=== PATIENT | female | born 1960 | race Two or more races ===

== ENCOUNTER 2024-04-21 08:43 | Emergency (ER) | payer OTHER, SELFPAY ==
[2024-04-21] VITALS (11 sets, daily range): BP systolic 114–155; BP diastolic 56–93; PULSE 103–117; RESP 14–19; TEMP 36.6–37.2; O2SAT 95–100; BMI 24.0
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
--- NOTE | 2024-04-21 09:25 | EKG_ITS ---
[facility] Test Date: 2024-04-21 Pat Name: ALESHA HYDE Department: Room: - Gender: Female Audiovisual Lead Technician: : 1960 Requested By: Luis Daniel Perez Order Number: [id number] Reading MD: Luis Daniel Perez Measurements Intervals [place] Rate: 108 P: 47 SC: 151 QRS: -7 QRSD: 91 T: 11 QT: 303 QTc: 406 Interpretive Statements SINUS TACHYCARDIA POSSIBLE LEFT ATRIAL ENLARGEMENT [-0.1mV P WAVE IN V1/V2] LOW QRS VOLTAGE IN PRECORDIAL LEADS [QRS DEFLECTION < 1.0 mV IN CHEST LEADS] POSSIBLE ANTERIOR MYOCARDIAL INFARCTION , PROBABLY OLD [30 ms Q WAVE IN V3/V4, OR R < 0.2 mV IN V4] ABNORMAL RHYTHM ECG No previous ECG available for comparison /store/S0/[id number]/[id number].pdf
--- NOTE | 2024-04-21 09:25 | XR_ITS ---
Examination: AP chest single view TECHNIQUE: AP portable sitting chest single view Exam date and time: April 21, 2024 0932 hours INDICATIONS: Patient fell yesterday with injury to the chest, chest pain FINDINGS: No pneumothorax Minor prominence left ventricle Clavicles ribs appear intact IMPRESSION: No pneumothorax pulmonary contusion or hemothorax
--- NOTE | 2024-04-21 09:28 | XR_ITS ---
Examination: CT maxillofacial, without intravenous contrast. 2-D sagittal reconstructions. 3-D reconstructions. Date and time of exam:April 21, 2024 1010 hours INDICATIONS: Patient fell today with injury to the face, facial pain COMPARISON: January 18, 2021 CTDI: vol (mGy):16.6 DLP: (mGycm):297 Technique: Multiple axial images of maxillofacial region, 3.0 mm slice thickness. 2-D sagittal and coronal reconstructions. 3-D reconstructions. Low dose protocols were performed. One or more of the following dose reduction techniques were used; automated exposure control, adjustment of the mA and/or KV according to patient size, use of iterative reconstruction technique. Findings: Frontal bone frontal sinuses intact Orbital rims intact No nasal bone fracture No depression zygomatic arches Pterygoid plates maxilla and the mandible intact IMPRESSION: No acute facial fracture.
--- NOTE | 2024-04-21 09:28 | XR_ITS ---
Examination: CT brain head without contrast. 2-D sagittal coronal reconstructions Date and time of exam:April 21, 2024 1010 hours INDICATIONS: Patient fell today with injury to the head, head pain COMPARISON: July 13, 2022 CTDI: vol (mGy):49 DLP: (mGycm):981 Technique: Multiple CT axial sections of the brain have been obtained, 5 mm slice thickness. Contrast has not been administered. 2-D sagittal, coronal reconstructions have been obtained Low dose protocols were performed. One or more of the following dose reduction techniques were used; automated exposure control, adjustment of the mA and/or KV according to patient size, use of iterative reconstruction technique. Findings: No significant ventricular enlargement. Intra-axial or extra-axial hemorrhage density is not seen. No mass effect or midline shift Basal cisterns are not remarkable. Fourth ventricle is midline. Cranial vault intact. Impression: Negative for acute hemorrhage, mass effect or midline shift
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
--- NOTE | 2024-04-21 09:28 | XR_ITS ---
Examination: CT cervical spine without contrast 2-D sagittal reconstructions 2-D coronal reconstructions 3-D reconstructions. Exam date and time:April 21, 2024 1010 hours INDICATIONS: Patient fell today with injury to the neck, neck pain COMPARISON: January 18, 2021 CTDI:vol (mGy) 13.2 DLP: (mGycm) 291 Technique: Multiple 2 mm axial sections of the cervical spine have been obtained. The coronal and sagittal reconstructions have been obtained. 3-D reconstructions have been obtained. Low dose protocols were performed. One or more of the following dose reduction techniques were used; automated exposure control, adjustment of the mA and/or KV according to patient size, use of iterative reconstruction technique. Findings: Axial sections demonstrate intact base of the skull. C1 exhibit satisfactory relationship to the odontoid. No acute cervical vertebral body fracture seen. Alignment posterior spinous processes satisfactory. Impression: No acute cervical fracture.
[2024-04-21] MEDS: SODIUM CHLORIDE 0.9% 1000 ML 1,000 ML 999 ML IV (09:59)
[2024-04-21 10:09] LABS: Lactate (Lactic Acid) 1.1 mMol/L (0.4-2.0)
[2024-04-21 10:11] LABS: Basophils % (Auto) 0 % (0-2.5); Eosinophils % (Auto) 0 % (0-10); Hematocrit 30.6 % (36.0-46.0); Hemoglobin 10.5 g/dL (12.0-16.0); Immature Granulocytes % (Auto) 0 % (0-0); Immature Granulocytes Auto 0.04 Thou/mm3 (0.00-0.00); Lymphocytes # (Auto) 0.9 Thou/mm3 (1.0-4.8); Lymphocytes % (Auto) 10 % (10-50); Mean Corpuscular HGB Conc 34.3 g/dl (31.0-37.0); Mean Corpuscular Hemoglobin 30.7 pg (25.0-35.0); Mean Corpuscular Volume 90 fL (80-100); Monocytes # (Auto) 0.7 Thou/mm3 (0.0-0.8); Monocytes % (Auto) 8 % (0-12); Neutrophils # (Auto) 7.6 Thou/mm3 (1.8-7.7); Neutrophils % (Auto) 81 % (37-80); Nucleated Red Blood Cell % 0 /100 WBC (0); Platelet Count 235 Thou/mm3 (140-440); RDW Standard Deviation 51.8 fL (36.4-46.3); Red Blood Count 3.42 Miln/mm3 (4.00-5.20); White Blood Count 9.3 Thou/mm3 (3.6-11.0)
[2024-04-21 10:28] LABS: INR 1.1 (0.9-1.3); Partial Thromboplastin Time 30.5 Seconds (22.0-36.0); Prothrombin Time 12.1 Seconds (9.0-12.2)
[2024-04-21 10:47] LABS: Acetaminophen < 2.0 mcg/mL (10.0-20.0); Alanine Aminotransferase 79 U/L (10-49); Albumin, Serum 4.1 gm/dL (3.4-4.8); Albumin/Globulin Ratio 1.4 (1.2-2.2); Alcohol, Blood Medical < 3.0 mg/dL (0-10.0); Alkaline Phosphatase 81 U/L (46-116); Anion Gap 15 (7-16); Aspartate Amino Transferase 201 U/L (0-34); BUN/Creatinine Ratio 22 Ratio (12-20); Bilirubin,Total 1.7 mg/dL (0.3-1.2); Blood Urea Nitrogen 13 mg/dL (9-23); Calcium 9.8 mg/dL (8.3-10.6); Calcium (Corrected) 9.8 mg/dL (8.5-10.1); Carbon Dioxide 17.8 mMol/L (20.0-31.0); Chloride 102 mMol/L (98-107); Creatinine (Component) 0.6 mg/dL (0.6-1.3); Estimated Creatinine Clearance 83.9 mL/min (>60); Globulin 2.9 gm/dL (2.3-3.5); Glucose 72 mg/dL (74-106); Lipase 28 U/L (12-53); Osmolality,Calculated 269 (275-295); Potassium 3.3 mMol/L (3.4-5.1); Salicylate < 3.0 mg/dL; Sodium 135 mMol/L (136-145); eGFR > 60 See Note
--- NOTE | 2024-04-21 11:00 | PC.NURSE ---
pt walked to and from bathroom without difficulty
[2024-04-21 11:33] LABS: HCG Qualitative,Urine Negative
--- NOTE | 2024-04-21 12:00 | PC.NURSE ---
resting without complaints. Incontinent of urine and pt cleaned and linen changed
[2024-04-21 12:04] LABS: Amphetamine/Methamp Scrn,U Positive (Negative); Barbiturate Screen,Urine Negative (Negative); Benzodiazepines Screen,Urine Negative (Negative); Benzoylecgonine Screen, Ur Negative (Negative); Fentanyl Screen,Urine Negative (Negative); Opiate Screen,Urine Negative (Negative); THC Screen,Urine Positive (Negative)
--- NOTE | 2024-04-21 15:05 | PC.NURSE ---
[facility] SUPPLY CHAIN BUSINESS ANALYST TALKWITH WITH DE. ALMAZAN THAT PT NOT MEETING CRITERIA FOR 5 150 AND HOT PACKER RESCINDING THE 5150. TALKED WITH DR. ALMAZAN ABOUT KEEPING PT ON 1798 HOLD. AWAITING MD TO ORDER.
--- NOTE | 2024-04-21 16:30 | PC.NURSE ---
DR. ALMAZAN WANTS PT WATCHED FOR POSSIBLE DT'S DUE TO HX ETOH USE DAILY
--- NOTE | 2024-04-21 18:14 | PC.NURSE ---
PT RESTING WITHOUT COMPLAINTS
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
--- NOTE | 2024-04-21 19:13 | PC.CC ---
1734-Call to APS MARIO Brownlee, SOC 341-verbal and written completed at this time, for concerns of self neglect. Moira request follow up call for D/c disposition.
--- NOTE | 2024-04-21 19:35 | PC.NURSE ---
Introduced self to pt. pt lying in gurney at this time. pt given a sandwich and juice box. pt lying in gurney, rambling and stating someone is sitting in the room with her. pt states its her sister and continues to point at the curtains. pts faced noted to have bruising, right eye trauma and bruising to left eye and chin. When asked about how they occurred pt stated she suffers from vertigo and has had multiple falls lately. Pt asked if she is having visual or audio hallucinations but kylah any, although she is noted to be rambling excessively having a flight of ideas. pt kylah any HI/SI.
[2024-04-21] MEDS: DIAZEPAM 5 MG TABLET 10 MG PO (20:05)
--- NOTE | 2024-04-21 22:15 | PD.EDADDENDU ---
Emergency Room Addendum Addendum Narrative: 1800: Care assumed from Dr. Perez. Past medical, surgical, social and family history reviewed. Vitals and home medications reviewed. Results and treatment plan discussed. I will assume the care of the patient at this time and will follow the patient, pending psychiatric placement. Please refer to the emergency department record for history and examination. Patient was placed in observation for treatment and monitoring of psychiatric symptoms, at 1800 04/21/2024. Symptoms consist of suicidal ideation and depression. Treatment plan includes psychiatric consult, reassessments, and possible placement into psychiatric facility. The patient had access and provided personal hygiene, shower, food, water, and daily medications. 0600: Care signed out to Dr. Brantley (emergency physician). Past medical, surgical, social and family history reviewed. Vitals and home medications reviewed. Results and treatment plan discussed. They will assume the care of the patient at this time and will follow the patient, pending psychiatric placement. At this time, observation has ended.
--- NOTE | 2024-04-21 22:25 | PC.NURSE ---
ASSISTED PT TO BEDSIDE [facility]. PT VERY UNSTEADY ON HER FEET, RN STOOD BY TO ASSIST. PT ASSISTED BACK TO [facility] AFTER USING [facility].
[2024-04-22 03:48] VITALS: BP 130/68; PULSE 105; RESP 16; O2SAT 100
[2024-04-22 03:53] VITALS: TEMP 36.6
[2024-04-22 06:47] VITALS: BP 100/63; PULSE 104; RESP 16; O2SAT 99
--- NOTE | 2024-04-22 07:26 | PC.NURSE ---
[facility] at bedside
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
[2024-04-22 07:53] VITALS: PULSE 105
[2024-04-22 08:05] VITALS: BP 120/70; PULSE 104; RESP 14; TEMP 36.7; O2SAT 98
--- NOTE | 2024-04-22 08:13 | PC.CC ---
Jagruti Harden made contact with PAC staff Tia and obtained appointment for mental health intake assessment for patient for Saturday, April 24, 2024, 9am. ASW provided this information to patient.
--- NOTE | 2024-04-22 08:14 | EDNOTE_ITS ---
Emergency Room Addendum <Carole Gray - Last Filed: 04/22/24 08:16> Addendum Narrative: 0600: Care assumed from Dr. Valdovinos, the previous shift emergency physician. Past medical, surgical, social and family history reviewed. Vitals and home medications reviewed. I will assume the care of the patient at this time, pending reassessment and final disposition. Please refer to the emergency department record for history and examination from initial visit.? 0815: HAND DRAWER IN HELPER has met with the patient and provided resources in addition to follow up appointments with mental health. Will DC Home. <Tc Brantley MD - Last Filed: 04/22/24 08:33> Addendum Narrative: 0600: Care assumed from Dr. Valdovinos, the previous shift emergency physician. Past medical, surgical, social and family history reviewed. Vitals and home medications reviewed. I will assume the care of the patient at this time, pending reassessment and final disposition. The patient was signed out to me from my predecessor Dr. Carrero. He told me that the patient had been medically cleared by him and his predecessor to be seen by mental health. On my examination, the patient is alert awake oriented x 4 GCS of 15. No suicidal no homicidal no delusion and no hallucination. Patient moving all 4 extremity. And she agreed to go home. She said she is going to call family for a ride home. Please refer to the emergency department record for history and examination from initial visit.? 0815: HAND DRAWER IN HELPER has met with the patient and provided resources in addition to follow up appointments with mental health. Will DC Home. Diagnosis: Mental health evaluation, fall with multiple soft tissue contusion, positive methamphetamine Condition: Stable and improved DC instruction: Follow-up with your medical doctor for recheck and further care in 72 hours. Return to nearest emergency department if condition worsens or if new symptoms develop.
== END 2024-04-22 09:17 | disposition home or self-care (01) ==
PROVIDERS: Emergency Medicine; Emergency Provider Emergency Medicine; PCP Family Medicine
DX: Z04.6 Encounter for general psychiatric examination, requested by authority (principal); S00.93XA Contusion of unspecified part of head, initial encounter; S00.83XA Contusion of other part of head, initial encounter; F29 Unspecified psychosis not due to a substance or known physiological condition; F10.10 Alcohol abuse, uncomplicated; F15.10 Other stimulant abuse, uncomplicated; E04.1 Nontoxic single thyroid nodule; S70.11XA Contusion of right thigh, initial encounter; S10.93XA Contusion of unspecified part of neck, initial encounter; S30.1XXA Contusion of abdominal wall, initial encounter; S20.219A Contusion of unspecified front wall of thorax, initial encounter; W17.81XA Fall down embankment (hill), initial encounter; I10 Essential (primary) hypertension
CPT/HCPCS: 36415; 70450; 70486; 71045; 71260; 72125; 74177; 80053; 80307; 80320; 80329; 81001; 81025; 83605; 83690; 85025; 85610; 85730; 93005; 96127; 96360; 96361; 99285; A4649; J7030; Q9967; A9270; G0480

== ENCOUNTER 2024-05-12 17:25 | Emergency (ER) | payer OTHER, SELFPAY ==
[2024-05-12 17:30] VITALS: BP 105/66; PULSE 97; RESP 18; TEMP 36.8; O2SAT 100; BMI 24.0
[2024-05-12 18:01] VITALS: PULSE 108; RESP 18; O2SAT 100
--- NOTE | 2024-05-12 18:27 | EDNOTE_ITS ---
ED Psych RME/HPI General Chief Complaint: Suicidal Stated Complaint: SI Time Seen by Provider: 05/12/24 18:11 Arrival date/time: 05/12/24 17:25 Limitations: no limitations RME / HPI RME / HPI Narrative: DR. FERNANDEZ MAIN ED EVALUATION: 64-year-old female brought in by police on a 5150 for visual hallucinations. She states that she sees people around her and thinking thoughts of people trying to tell her to hurt herself. Patient has a history of alcoholism. Currently not suicidal. PMHx: Liver cirrhosis, hypertension, depression, anxiety Social Hx: Alcoholism MD complaint: suicidal ideation Related Data Home Medications ?Medication ?Instructions ?Recorded ?Confirmed ergocalciferol (vitamin D2) 1,250 50,000 unit PO QWEEK #0 caps 06/19/17 06/12/22 mcg (50,000 unit) capsule (Vitamin D2) gabapentin 300 mg capsule 300 mg PO TID #0 caps 06/19/17 06/12/22 hydroxyzine HCl 25 mg tablet 25 mg PO Q8HR PRN ANXIETY #0 tabs 06/19/17 06/12/22 lactulose 10 gram/15 mL (15 mL) 10 gm PO BID ##0 06/19/17 06/12/22 oral solution meloxicam 7.5 mg/5 mL oral 7.5 mg PO QDAY ##0 06/19/17 06/12/22 suspension omeprazole 20 mg tablet,delayed 20 mg PO QDAY ##0 06/19/17 06/12/22 release ursodiol 500 mg tablet 500 mg PO BID ##0 06/19/17 06/12/22 amitriptyline 50 mg tablet 50 mg PO QDAY 02/06/21 06/12/22 sertraline 100 mg tablet 100 mg PO QDAY 02/06/21 06/12/22 topiramate 25 mg tablet 25 mg PO QDAY 02/06/21 06/12/22 Allergies Allergy/AdvReac Type Severity Reaction Status Date / Time No Known Allergies Allergy Verified 04/21/24 11:00 Review of Systems Review of Systems Systems Reviewed: All systems reviewed, normal except as documented Narrative Review of Systems: GEN: No fever, no chills, no weight loss EYES: No discharge, no visual changes, no pain HEENT: No ear pain, no congestion, no sore throat PULM: No shortness of breath, no cough, no congestion CV: No chest pain, no dyspnea on exertion, no palpitations GI: No nausea, no vomiting, no diarrhea, no pain, no constipation : No frequency, no urgency and no dysuria MUSC/SKEL: No joint pain, no back pain SKIN: No rash PSYCH: + hallucinations HEME/LYMPH: No easy bleeding or bruising tendencies NEURO: No weakness, no headache Past Medical History Past Medical History NEUROLOGIC: Positive Neurological Disorders and Migraine GASTROINTESTINAL: Positive Gastrointestinal Disorders REPRODUCTIVE: Positive Previous Pregnancies MUSCULOSKELETAL: Positive Musculoskeletal Disorders, Arthritis, Carpal Tunnel Syndrome and Fibromyalgia OTHER HISTORY: Positive Shingles, Falls and Chicken Pox Social History SMOKING STATUS: Never smoker ALCOHOL: Current ED Exam Narrative Physical exam: Patient is not diaphoretic. General Limitations: Present no limitations General appearance: Present alert and anxious; Absent appears intoxicated Head Head exam: Present atraumatic, normocephalic and normal inspection Eye Eye exam: Present normal appearance and EOMI; Absent scleral icterus ENT ENT exam: Present normal exam, normal oropharynx and mucous membranes moist Neck Neck exam: Present normal inspection, full ROM and trachea midline Chest Chest inspection: Present normal inspection and symmetric chest wall rise Respiratory Respiratory exam: Present normal lung sounds bilaterally Cardiovascular Cardiovascular exam: Present regular rate, normal rhythm and normal heart sounds Abdominal Exam Abdominal exam: Present soft and normal bowel sounds Extremities Exam Extremities exam: Present normal capillary refill; Absent pedal edema Back Exam Back exam: Present normal inspection and full ROM Neurological Exam Neurological exam: Present alert, oriented X3 and CN II-XII intact Psychiatric Psychiatric exam: Present normal affect, normal mood, flat affect and suicidal ideation; Absent agitated, anxious or manic Skin Skin exam: Present warm, dry, intact and normal color Course Course Course Narrative: 2342: Patient is medically clear for crisis evaluation. Patient was placed in observation for treatment and monitoring of psychiatric symptoms, at 2343 on 05/12/2024. Symptoms consist of suicidal ideation and depression. Treatment plan includes psychiatric consult, reassessments, and possible placement into psychiatric facility. The patient had access and provided personal hygiene, shower, food, water, and daily medications. Quality Measures none Orders Category Date Time Status CBC Stat Lab 05/12/24 18:37 Completed CMP [Comprehensive Metabolic Panel] Stat Lab 05/12/24 18:37 Completed Drug Screen,Urine Stat Lab 12/03/24 19:13 Completed Acetaminophen Tab [Tylenol Tab] Med 05/13/24 00:44 Discontinued 650 mg PO X1 ONE Vital Signs Vital signs: Vital Signs Temperature 98.2 F 05/12/24 17:30 Pulse Rate 97 05/12/24 17:30 Respiratory Rate 18 05/12/24 17:30 Blood Pressure 105/66 05/12/24 17:30 Pulse Oximetry (%) 100 05/12/24 17:30 Oxygen Delivery Method Room Air 05/12/24 17:30 Psych MDM Narrative MDM Narrative:: Differential diagnosis includes underlying medical condition, electrolyte abnormality, hallucinations, drug use, underlying psychiatric condition. 64-year-old female coming in with visual hallucinations and suicidal ideation. Patient is medically cleared for social work and/or mental health evaluation. Chel Spear, am scribing for and in the presence of Dr. Fernandez. Patient data External records reviewed:: [facility] previous records and EMS form Clinical information provided by:: patient and EMS Social determinants that could affect healthcare access:: alcohol use Patient has the following chronic illnesses:: Liver cirrhosis, hypertension, depression, anxiety. How is presenting disease/condition affected by chronic disease/condition?: exacerbated by Evaluation data The following diagnostics were reviewed and interpreted by me:: lab results Lab and/or radiology exams considered but not ordered:: none Interpretation Summary: See above under MDM narrative. Medications / Prescriptions Medications or Prescriptions considered but not ordered:: none Medication administrations:: Medication Administration History Discontinued Medications Acetaminophen (Acetaminophen 325 Mg Tablet) 650 mg PO X1 ONE Stop: 05/13/24 00:45 Last Admin: 05/13/24 00:53 Dose: 650 mg Documented By: SE see above if any Consultations Consultation(s) initiated? (list below): No Diagnosis Psych Differential Diagnosis: other (underlying medical condition, electrolyte abnormality, hallucinations, drug use, underlying psychiatric condition) Most likely diagnosis given after review of the tests above:: see below Admission Indicated Admission indicated?: not indicated Admission Request Was there a request for admission?: No Disposition Plan Disposition Plan: other (specify) (Signed out to the next oncoming provider at 0600 pending crisis evaluation.) Discharge Plan Plan Patient condition on transfer: Stable Prescriptions/Referrals Prescriptions/Med Rec: No Action hydroxyzine HCl 25 MG tablet 25 mg PO Q8HR PRN (Reason: ANXIETY) Qty: 0 ursodiol 500 MG tablet 500 mg PO BID Qty: 0 omeprazole 20 MG tablet,delayed release (DR/EC) 20 mg PO QDAY Qty: 0 gabapentin 300 MG capsule 300 mg PO TID Qty: 0 ergocalciferol (vitamin D2) [Vitamin D2] 50,000 UNIT capsule 50,000 unit PO QWEEK Qty: 0 meloxicam 7.5 MG/5 ML suspension 7.5 mg PO QDAY Qty: 0 lactulose 10 GM/15 ML solution 10 gm PO BID Qty: 0 sertraline 100 mg tablet 100 mg PO QDAY topiramate 25 mg tablet 25 mg PO QDAY amitriptyline 50 mg tablet 50 mg PO QDAY Referrals: Abdulaziz Martienz MD [Primary Care Provider] - In 1 week Problem List Clinical Impression: Suicidal ideation, Methamphetamine abuse, Marijuana abuse Patient/Caregiver Discharge Instructions Print Language: Danish
[2024-05-12 18:42] LABS: Basophils % (Auto) 0 % (0-2.5); Eosinophils # (Auto) 0.2 Thou/mm3 (0.0-0.5); Eosinophils % (Auto) 3 % (0-10); Hematocrit 30.3 % (36.0-46.0); Hemoglobin 10.4 g/dL (12.0-16.0); Immature Granulocytes % (Auto) 0 % (0-0); Immature Granulocytes Auto 0.01 Thou/mm3 (0.00-0.00); Lymphocytes # (Auto) 1.6 Thou/mm3 (1.0-4.8); Lymphocytes % (Auto) 28 % (10-50); Mean Corpuscular HGB Conc 34.3 g/dl (31.0-37.0); Mean Corpuscular Hemoglobin 30.2 pg (25.0-35.0); Mean Corpuscular Volume 88 fL (80-100); Monocytes # (Auto) 0.6 Thou/mm3 (0.0-0.8); Monocytes % (Auto) 10 % (0-12); Neutrophils # (Auto) 3.4 Thou/mm3 (1.8-7.7); Neutrophils % (Auto) 59 % (37-80); Nucleated Red Blood Cell % 0 /100 WBC (0); Platelet Count 240 Thou/mm3 (140-440); RDW Standard Deviation 46.8 fL (36.4-46.3); Red Blood Count 3.44 Miln/mm3 (4.00-5.20); White Blood Count 5.7 Thou/mm3 (3.6-11.0)
[2024-05-12 19:01] LABS: Alanine Aminotransferase 11 U/L (10-49); Albumin, Serum 3.6 gm/dL (3.4-4.8); Albumin/Globulin Ratio 1.3 (1.2-2.2); Alkaline Phosphatase 77 U/L (46-116); Anion Gap 15 (7-16); Aspartate Amino Transferase 22 U/L (0-34); BUN/Creatinine Ratio 12 Ratio (12-20); Bilirubin,Total 0.9 mg/dL (0.3-1.2); Blood Urea Nitrogen 7 mg/dL (9-23); Calcium (Corrected) 9.3 mg/dL (8.5-10.1); Carbon Dioxide 20.3 mMol/L (20.0-31.0); Chloride 102 mMol/L (98-107); Creatinine (Component) 0.6 mg/dL (0.6-1.3); Estimated Creatinine Clearance 83.9 mL/min (>60); Globulin 2.8 gm/dL (2.3-3.5); Glucose 74 mg/dL (74-106); Osmolality,Calculated 270 (275-295); Potassium 2.8 mMol/L (3.4-5.1); Sodium 137 mMol/L (136-145); Total Protein 6.4 gm/dL (5.7-8.2); eGFR > 60 See Note
--- NOTE | 2024-05-12 19:01 | PC.CC ---
Pt Fiona Bateman is a 64 yr old female to ED on 5150 hold placed by [employer] for DTS. From hold pt is experiencing auditory/visual hallucinations. Pt reporting command type audio hallucinations telling her to harm herself. Pt seeing people in her home. At this time pt is pending medical clearance for crisis evaluation.
--- NOTE | 2024-05-12 19:25 | PC.NURSE ---
ASSUME CARE AT THIS TIME, INTRODUCED SELF TO PT. PT CURRENTLY LYING IN GURNEY COMFORTABLE IN NAD. PT UPDATED ON PLAN OF CARE. SITTER AT BEDSIDE.
[2024-05-12 20:49] LABS: Amphetamine/Methamp Scrn,U Positive (Negative); Barbiturate Screen,Urine Negative (Negative); Benzodiazepines Screen,Urine Negative (Negative); Benzoylecgonine Screen, Ur Negative (Negative); Fentanyl Screen,Urine Negative (Negative); Opiate Screen,Urine Negative (Negative); THC Screen,Urine Positive (Negative)
[2024-05-12 21:18] VITALS: BP 134/73; PULSE 100; RESP 16; TEMP 36.9; O2SAT 96
[2024-05-13 00:37] VITALS: BP 120/66; PULSE 97; RESP 18; TEMP 36.7; O2SAT 98
[2024-05-13] MEDS: ACETAMINOPHEN 325 MG TABLET 650 MG PO (00:53)
[2024-05-13 06:00] VITALS: BP 116/70; PULSE 83; RESP 18; TEMP 36.8; O2SAT 98
--- NOTE | 2024-05-13 07:33 | EDNOTE_ITS ---
Emergency Room Addendum Addendum Narrative: 0600: Care assumed from Dr. Greenberg, the previous shift emergency physician. Past medical, surgical, social and family history reviewed. Vitals and home medications reviewed. Patient has been medically cleared for crisis evaluation. I will assume the care of the patient pending mental health evaluation. Please refer to the emergency department record for history and examination from initial visit.? EMS notes reviewed by me. Nursing notes reviewed by me. Vital signs reviewed by me. [place] medical records reviewed by me. 0910: Made aware by JC Tuttle that the patient has been evaluated and placed the patient on a 5150 hold for danger to self. At this time pending LPS facility placement. 1035: Patient has been declined at [facility]. 1155: Patient has been accepted by Dr. Hinojosa at [facility].
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
[2024-05-13 09:11] VITALS: BP 114/54; PULSE 74; RESP 16; TEMP 36.7; O2SAT 96
--- NOTE | 2024-05-13 10:31 | PC.CC ---
Patient was denied due to medical concerns from [facility].
[2024-05-13 11:41] VITALS: BP 147/88; PULSE 88; RESP 18; TEMP 36.3; O2SAT 98
--- NOTE | 2024-05-13 11:55 | PC.CC ---
Patient was accepted to [facility] by Dr. Hinojosa, Unit [address]. Dr. Valdovinos, supervisor production department Renu, and RN Gila made aware of acceptance information. Patient was provided with acceptance information.
[2024-05-13] MEDS: POTASSIUM CHLORIDE 20 mEq TABCR 40 MEQ PO (12:13)
[2024-05-13 14:45] VITALS: BP 131/86; PULSE 82; RESP 18; TEMP 36.3; O2SAT 98
--- NOTE | 2024-05-14 01:00 | PC.NURSE ---
Pt back to room 12 from [facility], got report from EMT-B Chan who reports that [facility] refuse [facility] Pt because the Pt was telling staff that she could not walk, so they sent her back. In room 12, after Pt was placed on the gurney, Dr. Bradley and myself were able observed this Pt get out of bed and stand without assistance and walk 5 steps forward and turn around and walk back to the bed and layed herself back down in bed. Pt is a GCS of 15, A&O X4. Pt currently denied any visual hallucinations, SI/HI at this time. 1 on 1 sitter at bedside.
--- NOTE | 2024-05-14 01:04 | EDNOTE_ITS ---
Emergency Room Addendum <Hoda Martinez - Last Filed: 05/14/24 05:35> Addendum Narrative: 0104: Got a call from EMS due to the facility not accepting the patient (patient reported not being able to walk). Patient is able to ambulate here, taking 3-4 steps from the gurney. She is disheveled and has scabs throughout her skin. But was that that is how they wanted him to do present with a wanting him to do a second kidney work in the she is talking in full sentences. Lungs are clear. OBSERVATION NOTE: The patient was placed in ED observation care at 05/14/24 at 0104. The patient was placed in ED observation care because of pending PT evaluation. The belinda ents past medical history, social history, and family history were reviewed. The plan of care will include serial examinations. 0600: Care signed out to the next oncoming provider. Past medical, surgical, social and family history reviewed. Vitals and home medications reviewed. Results and treatment plan discussed. They will assume the care of the patient at this time and will follow the patient, pending PT evaluation. <Christy Greenberg MD - Last Filed: 05/14/24 02:39> Addendum Narrative: 010: Got a call from EMS due to the facility not accepting the patient (patient reported not being able to walk). Patient is able to ambulate here, taking 3-4 steps from the gurney. She is disheveled and has scabs throughout her skin. But was that that is how they wanted him to do present with a wanting him to do a second kidney work in the she is talking in full sentences. Lungs are clear. OBSERVATION NOTE: The patient was placed in ED observation care at 05/14/24 at 0104. The patient was placed in ED observation care because of pending PT evaluation. The patients past medical history, social history, and family history were reviewed. The plan of care will include serial examinations.
[2024-05-14 01:17] VITALS: BP 129/76; PULSE 96; RESP 16; TEMP 36.9; O2SAT 96
--- NOTE | 2024-05-14 07:17 | PC.CC ---
ASW Jagruti was made aware that patient returned to facility as [facility] would not accept patient as patient was not able to ambulate independently. ASW made face to face contact with the patient who reports a there are 2 local [facility] facilities that she can go to instead of going to [facility]. ASW informed patient that this all depends on who accepts her for placement. Patient was made aware that PT was going to come and work with her so we can determine our discharge planning. Patient requested ASW make telephone contact with her , ASW attempted to make contact with the patient's spouse but the phone went to voicemail. ASW left voicemail for the patient's .
--- NOTE | 2024-05-14 07:33 | PC.NURSE ---
Received report from Tc and assumed care of patient. Patient resting in bed with no complaints at this time.
--- NOTE | 2024-05-14 10:09 | PC.NURSE ---
Patient ambulated by PT with no problems.
--- NOTE | 2024-05-14 10:25 | PC.CC ---
ASWJagruti made contact with [facility] to notify them that the patient had a PT eval and they requested the packet be resubmitted. ASW will be submitting referral to [facility] facilities via [employer].
--- NOTE | 2024-05-14 10:26 | PC.PT ---
PT eval only. Patient is I with transfers and ambulation with and without AD.
[2024-05-14 11:18] VITALS: BP 127/61; PULSE 88; RESP 19; TEMP 36.9; O2SAT 98
--- NOTE | 2024-05-14 12:01 | PC.NURSE ---
Report given to [facility].
--- NOTE | 2024-05-14 12:10 | PC.CC ---
Patient was accepted to [facility] by Dr. Padgett, Unit [address]. Patient was made aware of the accepting facility and reported she is happy she is getting placed closer to home. Patient wanted her updated with accepting information. ASW made phone contact with patient's to provide him with accepting facility information. Transportation was arranged with [facility] for 1500.
[2024-05-14 13:12] VITALS: BP 117/71; PULSE 88; RESP 19; TEMP 36.9; O2SAT 98
--- NOTE | 2024-05-14 14:16 | PC.NURSE ---
HERE AT BEDSIDE TALKING WITH AND SSW
--- NOTE | 2024-05-14 15:58 | PC.NURSE ---
Report given to Bette VELIZ at [facility].
== END 2024-05-14 15:19 ==
PROVIDERS: Emergency Provider Emergency Medicine; PCP Family Medicine
DX: R45.851 Suicidal ideations (principal); F12.10 Cannabis abuse, uncomplicated; F15.10 Other stimulant abuse, uncomplicated; F32.A Depression, unspecified; F41.9 Anxiety disorder, unspecified
CPT/HCPCS: 36415; 80053; 80307; 84132; 85025; 87811; 90839; 96127; 99285; A9270

== ENCOUNTER 2024-06-01 17:53 | Emergency (ER) | payer OTHER, SELFPAY ==
[2024-06-01 17:55] VITALS: BP 150/97; PULSE 108; RESP 19; TEMP 37; O2SAT 98
--- NOTE | 2024-06-01 18:13 | PC.NURSE ---
PT BROUGHT BY AMBULANCE TO TRIAGE DESK. WHEN ASKED TO SIGN FORM FOR TREATMENT, PT STATED I'M NOT SIGNING ANYTHING. I'M GOING TO LEAVE. WENT TO SECURITY DESK TO CALL FOR RIDE
== END 2024-06-01 18:14 | disposition left against medical advice (07) ==
LOC: SERX 18:23
PROVIDERS: Emergency Provider Emergency Medicine
DX: Z53.21 Procedure and treatment not carried out due to patient leaving prior to being seen by health care provider (principal)
CPT/HCPCS: 99281